=== PATIENT | female | born 1980 | race Caucasian/White ===

== ENCOUNTER 2022-03-30 16:04 | Inpatient (IN) | payer BC, SELFPAY ==
[~2022-03-30] VITALS: Ht 165.1 cm; Wt 71.5 kg
[2022-03-30] MEDS ORDERED: ACETAMINOPHEN 325 MG TAB PO ONE (19:20)
[2022-03-30] MEDS ORDERED: NS 1,000 ML IV ONE (20:00)
[2022-03-30] MEDS ORDERED: methylPREDNISolone 125MG 2ML VIAL IV ONE (20:00)
[2022-03-30] MEDS ORDERED: ISOVUE-370 76% 100ML VIAL As Ordered ONE (20:13)
[2022-03-30 20:44] LABS: BASO # 0.1 10^3/uL (0.0-0.2); BASO % 0.3 % (0.0-1.0); EOS % 0.1 % (0.0-3.0); HEMATOCRIT 40.6 % (36.0-47.0); HEMOGLOBIN 13.6 g/dl (12.0-15.5); LYMPH # 1.7 10^3/uL (1.5-5.0); LYMPH % 7.7 % (24.0-44.0); MEAN CORPUSCULAR HEMOGLOBIN 29.1 pg (27.0-33.0); MEAN CORPUSCULAR HGB CONC 33.5 g/dl (32.0-36.5); MEAN CORPUSCULAR VOLUME 86.8 fl (80.0-96.0); NEUTROPHILS # 18.3 10^3/uL (1.5-8.5); PLATELET COUNT, AUTOMATED 231 10^3/uL (150-450); RED BLOOD COUNT 4.68 10^6/uL (4.00-5.40); WHITE BLOOD COUNT 22.1 10^3/uL (4.0-10.0)
[2022-03-30 20:54] LABS: INR 0.97; PROTHROMBIN TIME 13.3 SECONDS (12.7-14.5)
[2022-03-30] MEDS: MELOXICAM (MOBIC) 7.5 MG TAB PO SCH (21:00)
[2022-03-30] MEDS: lamoTRIgine 100MG TAB PO SCH (21:00)
[2022-03-30] MEDS: MONTELUKAST 10 MG TAB PO SCH (21:00)
[2022-03-30] MEDS: OLANZapine 10 MG TAB PO SCH (21:00)
[2022-03-30] MEDS ORDERED: hydrOXYzine 50 MG TAB PO SCH (21:00)
[2022-03-30 21:12] LABS: MONO # 1.8 10^3/uL (0.0-0.8)
[2022-03-30 21:17] LABS: ALBUMIN 3.7 GM/DL (3.2-5.2); ALT/SGPT 59 U/L (12-78); BILIRUBIN,DIRECT 0.3 MG/DL (0.0-0.2); BLOOD UREA NITROGEN 10 MG/DL (7-18); CALCIUM LEVEL 9.7 MG/DL (8.5-10.1); CARBON DIOXIDE LEVEL 27 MEQ/L (21-32); CHLORIDE LEVEL 108 MEQ/L (98-107); CREATININE FOR GFR 0.78 MG/DL (0.55-1.30); GLOMERULAR FILTRATION RATE > 60.0 (>58); GLUCOSE, FASTING 106 MG/DL (70-100); NT-PRO BNP 229 PG/ML (<125); POTASSIUM SERUM 3.6 MEQ/L (3.5-5.1); SODIUM LEVEL 141 MEQ/L (136-145); TOTAL PROTEIN 6.9 GM/DL (6.4-8.2)
[2022-03-30 22:41] LABS: CK-MB VALUE MASS < 1.0 NG/ML (<3.6); CPK CREATINE PHOSPHOKINASE 119 U/L (26-192); MB/CK RELATIVE INDEX 0.84 (< OR =4)
[2022-03-30] MEDS ORDERED: PIPERACILLIN/TAZOBACTAM SOD 3.375 GM in D5W MINI-BAG PLUS 50 ML IV ONE (23:20)
[2022-03-31] MEDS ORDERED: ACETAMINOPHEN TAB 650MG DOSE (2X325MG) PO PRN (00:15)
[2022-03-31] MEDS ORDERED: OLAN20TA14 PO (00:39)
[2022-03-31] MEDS ORDERED: RAME8TAB2 PO (00:39)
[2022-03-31] MEDS ORDERED: PRAV40TA2 PO (00:39)
[2022-03-31] MEDS ORDERED: LORA1TAB4 PO (00:39)
[2022-03-31] MEDS ORDERED: ESOM40CA35 PO (00:39)
[2022-03-31] MEDS ORDERED: MELO7.5T35 PO (00:39)
[2022-03-31] MEDS ORDERED: MONT10TA97 PO (00:39)
[2022-03-31] MEDS ORDERED: NASA1SPR NARES (00:39)
[2022-03-31] MEDS ORDERED: AMBI10TA PO (00:39)
[2022-03-31] MEDS ORDERED: MIRA3350 PO (00:39)
[2022-03-31] MEDS ORDERED: ALLE180T33 PO (00:39)
[2022-03-31] MEDS ORDERED: LEVO50TA5 PO (00:39)
[2022-03-31] MEDS ORDERED: SOLI10TA PO (00:39)
[2022-03-31] MEDS ORDERED: SPIR12.9 PO (00:39)
[2022-03-31] MEDS ORDERED: DULE200A PO (00:39)
[2022-03-31] MEDS ORDERED: LAMO200T3 PO (00:39)
[2022-03-31] MEDS ORDERED: SUCR1TAB56 PO (00:39)
[2022-03-31] MEDS ORDERED: HYDR50TA70 PO (00:39)
[2022-03-31] MEDS ORDERED: HOME MED LIST COMPLETE! XX SCH (00:40)
[2022-03-31 01:45] VITALS: BP 119/79
[2022-03-31] MEDS: RAMELTEON 8 MG TAB (ROZEREM) PO SCH ×2 (02:23→20:11)
[2022-03-31] MEDS: LORazepam 0.5 MG TAB PO SCH ×2 (02:26→20:12)
[2022-03-31] MEDS ORDERED: hydrOXYzine 50 MG TAB PO ONE (03:00)
[2022-03-31] MEDS: LEVOTHYROXINE 50MCG TABLET (0.05MG) PO SCH (05:19)
[2022-03-31 05:38] VITALS: O2SAT 92
[2022-03-31 05:41] VITALS: BP 121/73
[2022-03-31 05:57] LABS: BASO # 0.1 10^3/uL (0.0-0.2); BASO % 0.3 % (0.0-1.0); EOS # 0.1 10^3/uL (0.0-0.5); EOS % 0.4 % (0.0-3.0); HEMATOCRIT 39.7 % (36.0-47.0); HEMOGLOBIN 13.3 g/dl (12.0-15.5); LYMPH # 1.4 10^3/uL (1.5-5.0); LYMPH % 8.5 % (24.0-44.0); MEAN CORPUSCULAR HEMOGLOBIN 28.9 pg (27.0-33.0); MEAN CORPUSCULAR HGB CONC 33.5 g/dl (32.0-36.5); MEAN CORPUSCULAR VOLUME 86.3 fl (80.0-96.0); MONO # 1.1 10^3/uL (0.0-0.8); MONO % 7.1 % (2.0-8.0); NEUTROPHILS # 13.3 10^3/uL (1.5-8.5); PLATELET COUNT, AUTOMATED 208 10^3/uL (150-450)
[2022-03-31 06:14] LABS: BLOOD UREA NITROGEN 7 MG/DL (7-18); CALCIUM LEVEL 8.9 MG/DL (8.5-10.1); CARBON DIOXIDE LEVEL 27 MEQ/L (21-32); CHLORIDE LEVEL 109 MEQ/L (98-107); CREATININE FOR GFR 0.69 MG/DL (0.55-1.30); GLOMERULAR FILTRATION RATE > 60.0 (>58); GLUCOSE, FASTING 104 MG/DL (70-100); SODIUM LEVEL 139 MEQ/L (136-145)
[2022-03-31] MEDS: TIOTROPIUM INHALER/CAPSULE (SPIRIVA) INH SCH (07:34)
[2022-03-31] MEDS ORDERED: LEVALBUTEROL 1.25 MG/0.5 ML CONCENTRATE NEB NEB PRN (08:00)
[2022-03-31] MEDS: SYMBICORT 160/4.5MCG INHALER 6GM INH SCH ×2 (08:50→19:29)
[2022-03-31] MEDS: ENOXAPARIN 40MG/0.4ML SYRINGE (J1650 PER 10MG) SC SCH (09:29)
[2022-03-31] MEDS: SUCRALFATE 1 GM TAB PO SCH ×3 (09:29→20:12)
[2022-03-31] MEDS: PANTOPRAZOLE 40MG TAB (PROTONIX) PO SCH ×2 (09:30→20:11)
[2022-03-31] MEDS: FEXOFENADINE 60MG TAB PO SCH (09:30)
[2022-03-31] MEDS: lamoTRIgine 100MG TAB PO SCH ×2 (09:30→20:11)
[2022-03-31] MEDS: MIRALAX *UNIT DOSE* 17GM PACKET PO SCH (09:31)
[2022-03-31] MEDS: PIPERACILLIN/TAZOBACTAM SOD 3.375 GM in D5W MINI-BAG PLUS 50 ML IV SCH ×3 (09:31→20:10)
[2022-03-31 13:55] LABS: FERRITIN 190 NG/ML (8-252); LDH LACTATE DEHYDROGENASE 297 U/L (84-246)
[2022-03-31 14:00] VITALS: BP 103/65
[2022-03-31] MEDS: OLANZapine 10 MG TAB PO SCH (20:12)
[2022-03-31] MEDS: MONTELUKAST 10 MG TAB PO SCH (20:12)
[2022-03-31] MEDS: MELOXICAM (MOBIC) 7.5 MG TAB PO SCH (20:12)
[2022-03-31 21:00] VITALS: O2SAT 91
[2022-03-31] MEDS ORDERED: SOLIFENACIN 5 MG TAB PO SCH (21:00)
[2022-03-31] MEDS ORDERED: LORazepam 0.5 MG TAB PO SCH (21:00)
[2022-03-31] MEDS ORDERED: RAMELTEON 8 MG TAB (ROZEREM) PO SCH (21:00)
[2022-03-31] MEDS ORDERED: PRAVASTATIN 20 MG TAB PO SCH (21:00)
[2022-03-31] MEDS ORDERED: hydrOXYzine 50 MG TAB PO SCH ×2 (21:00)
[2022-03-31] MEDS ORDERED: zolPIDEM TARTRATE 5 MG TAB PO SCH (21:00)
[2022-03-31 22:00] VITALS: BP 96/60
[2022-04-01] MEDS: PIPERACILLIN/TAZOBACTAM SOD 3.375 GM in D5W MINI-BAG PLUS 50 ML IV SCH ×3 (01:36→14:00)
[2022-04-01] MEDS: LEVOTHYROXINE 50MCG TABLET (0.05MG) PO SCH (06:40)
[2022-04-01 06:42] VITALS: BP 103/68
[2022-04-01 07:21] LABS: BASO # 0.1 10^3/uL (0.0-0.2); BASO % 0.7 % (0.0-1.0); EOS # 0.3 10^3/uL (0.0-0.5); EOS % 2.7 % (0.0-3.0); HEMATOCRIT 37.5 % (36.0-47.0); HEMOGLOBIN 12.3 g/dl (12.0-15.5); LYMPH # 1.6 10^3/uL (1.5-5.0); LYMPH % 17.3 % (24.0-44.0); MEAN CORPUSCULAR HEMOGLOBIN 28.1 pg (27.0-33.0); MEAN CORPUSCULAR HGB CONC 32.8 g/dl (32.0-36.5); MEAN CORPUSCULAR VOLUME 85.8 fl (80.0-96.0); MONO # 0.6 10^3/uL (0.0-0.8); NEUTROPHILS # 6.6 10^3/uL (1.5-8.5); NEUTROPHILS % 71.8 % (36.0-66.0); PLATELET COUNT, AUTOMATED 198 10^3/uL (150-450); RED BLOOD COUNT 4.37 10^6/uL (4.00-5.40); WHITE BLOOD COUNT 9.2 10^3/uL (4.0-10.0)
[2022-04-01 07:42] LABS: BLOOD UREA NITROGEN 9 MG/DL (7-18); CALCIUM LEVEL 8.6 MG/DL (8.5-10.1); CARBON DIOXIDE LEVEL 26 MEQ/L (21-32); CHLORIDE LEVEL 109 MEQ/L (98-107); GLOMERULAR FILTRATION RATE > 60.0 (>58); GLUCOSE, FASTING 83 MG/DL (70-100); POTASSIUM SERUM 3.9 MEQ/L (3.5-5.1); SODIUM LEVEL 141 MEQ/L (136-145)
[2022-04-01] MEDS: TIOTROPIUM INHALER/CAPSULE (SPIRIVA) INH SCH (08:16)
[2022-04-01] MEDS: SYMBICORT 160/4.5MCG INHALER 6GM INH SCH (08:16)
[2022-04-01 08:19] VITALS: O2SAT 93
[2022-04-01 08:20] VITALS: O2SAT 93
[2022-04-01 09:00] VITALS: O2SAT 91
[2022-04-01] MEDS: PANTOPRAZOLE 40MG TAB (PROTONIX) PO SCH (09:14)
[2022-04-01] MEDS: MIRALAX *UNIT DOSE* 17GM PACKET PO SCH (09:14)
[2022-04-01] MEDS: lamoTRIgine 100MG TAB PO SCH (09:14)
[2022-04-01] MEDS: FEXOFENADINE 60MG TAB PO SCH (09:14)
[2022-04-01] MEDS: SUCRALFATE 1 GM TAB PO SCH (09:14)
[2022-04-01] MEDS: ENOXAPARIN 40MG/0.4ML SYRINGE (J1650 PER 10MG) SC SCH (09:15)
[2022-04-01] MEDS ORDERED: PROB1CAP10 PO (11:13)
[2022-04-01] MEDS ORDERED: VENTAER INH (11:13)
[2022-04-01] MEDS ORDERED: AMOX875T2 PO ×3 (11:13→13:34)
[2022-04-01 12:56] VITALS: BP 129/84
== END 2022-04-01 15:35 | disposition home or self-care (01) | DRG 137 ==
LOC: M ED 16:04 → M ED INP 23:31 → ENRESERV 03-31 00:34 → M MSPAV 03-31 01:30
PROVIDERS: ADMIT Family Medicine; ATTEND Internal Medicine
DX: U07.1 COVID-19 (principal); J15.9 Unspecified bacterial pneumonia; K58.9 Irritable bowel syndrome, unspecified; E03.9 Hypothyroidism, unspecified; J45.909 Unspecified asthma, uncomplicated; M19.90 Unspecified osteoarthritis, unspecified site; G47.00 Insomnia, unspecified; R10.13 Epigastric pain; J98.11 Atelectasis; N32.81 Overactive bladder; F31.9 Bipolar disorder, unspecified; E78.5 Hyperlipidemia, unspecified; Z79.899 Other long term (current) drug therapy; Z88.1 Allergy status to other antibiotic agents; Z88.5 Allergy status to narcotic agent; Z88.8 Allergy status to other drugs, medicaments and biological substances; Z91.018 Allergy to other foods; Z85.3 Personal history of malignant neoplasm of breast